=== PATIENT | female | born 1980 | race Caucasian/White ===

== ENCOUNTER 2018-04-19 06:34 | Inpatient (IN) | payer BC ==
[2018-04-19] MEDS ORDERED: OXYTOCIN 10 UNIT/ML 1 ML VIAL IM PRN (06:48)
[2018-04-19] MEDS ORDERED: LIDOCAINE 0.5% (PF) 5 MG/ML (50 ML SDV) SQ PRN (06:48)
[2018-04-19] MEDS ORDERED: METHYLERGONOVINE 0.2 MG/ML 1 ML AMP IM PRN (06:48)
[2018-04-19] MEDS ORDERED: TERBUTALINE 1 MG/ML VIAL SQ PRN (06:48)
[2018-04-19] MEDS ORDERED: CARBOPROST TROMETHAMINE 250 MCG/ML 1 ML AMP IM PRN (06:48)
[2018-04-19 06:53] VITALS: BMI 31.0
[2018-04-19] MEDS ORDERED: OXYTOCIN 30 UNITS/500 ML NS 30 UNIT in SALINE 1 500ML.BAG IV SCH (07:00)
[2018-04-19] MEDS: LACTATED RINGERS 1,000 ML IV SCH ×2 (07:00→13:32)
[2018-04-19 07:11] LABS: Basophils % (A) 0 %; Eosinophils # (A) 0.2 k/uL (0-0.7); Eosinophils % (A) 2 %; HCT 29.9 % (34.0-46.0); HGB 9.9 gm/dL (11.4-16.0); Lymphocytes # (A) 3.8 k/uL (1.0-4.8); Lymphocytes % (A) 40 %; MCH 28.6 pg (25.0-35.0); MCHC 33.1 g/dL (31.0-37.0); MCV 86.5 fL (80.0-100.0); Monocytes # (A) 0.5 k/uL (0-1.0); Monocytes % (A) 5 %; Neutrophils # (A) 4.6 k/uL (1.3-7.7); Neutrophils % (A) 49 %; Platelet Count 228 k/uL (150-450); RBC 3.46 m/uL (3.80-5.40); WBC 9.4 k/uL (3.8-10.6)
[2018-04-19] MEDS ORDERED: BUTORPHANOL 1 MG/ML 1 ML VIAL IV PRN (08:29)
--- NOTE | 2018-04-19 08:36 | P.HPOB ---
History of Present Illness H&P Date: 04/19/18 Chief Complaint: 38-4/7 weeks, mild preeclampsia, TOLAC The patient is a 37-year-old 2 para 1001 admitted at 38-4/7 weeks as established by seven-week ultrasound. She is admitted with a diagnosis of mild preeclampsia having shown blood pressures in the ranges of 150s over 90s to 100 in the office this week as well as 2+ protein spilling in her urine and increasing edema. She denies any other symptoms to include headaches or scotomata. She carries a history of previous section for breech presentation and has requested vaginal trial of labor for this . Given the findings of preeclampsia, the decision was made to proceed with delivery. Her cervix is relatively unfavorable and she is at this time declining repeat section in favor of attempted induction of labor. She does fall into the category of advanced maternal age and declined any testing. Additionally she is known to be Rh- and received RhoGAM at 28 weeks. Group B strep status is negative. Obstetrical history: 2 para 1001 with 1 term delivery secondary to breech presentation. Current statistics are listed in history of present illness. EDC of 04/30/2018 was established by a 7 week ultrasound. Laboratory workup demonstrates a blood type of A- with a negative antibody screen. Rubella status is immune. The remainder of the laboratory workup was within normal limits. One hour Glucola was normal and group B strep status is negative. Gynecologic history: Unremarkable with no history of any infections to include STDs. Review of Systems Review of systems is confined to history of present illness. Past Medical History Past Medical History: No Reported History History of Any Multi-Drug Resistant Organisms: None Reported Past Surgical History: Section Additional Past Surgical History / Comment(s): 2011 Past Anesthesia/Blood Transfusion Reactions: No Reported Reaction Past Psychological History: Anxiety, Depression Smoking Status: Never smoker Past Alcohol Use History: None Reported Past Drug Use History: None Reported - Past Family History Mother Family Medical History: Hypertension, Thyroid Disorder Medications and Allergies Home Medications Medication Instructions Recorded Confirmed Type Omeprazole 40 mg PO DAILY 04/19/18 04/19/18 History Sertraline [Zoloft] 50 mg PO DAILY 04/19/18 04/19/18 History Allergies Allergy/AdvReac Type Severity Reaction Status Date / Time Sulfa (Sulfonamide Allergy Intermediate Rash/Hives Verified 02/28/19 06:47 Antibiotics) Exam Vital Signs Temp Pulse Resp BP Pulse Ox 04/19/18 06:49 97.5 F L 73 16 153/98 98 Intake and Output 04/18/18 04/19/18 04/19/18 22:59 06:59 14:59 Other: Weight 72.121 kg In general, this is a well-developed, well-nourished white female in no acute distress. Her heart has a regular rhythm and rate without murmur. Her lungs are clear to auscultation bilaterally in all elizondo. Her abdomen is gravid, nondistended, has normal active bowel sounds, soft, nontender, and without any palpable masses aside from uterine fundus. Her extremities are without any cyanosis or clubbing though there is 1+ bilateral lower extremity edema below the knees. Digital cervical examination confirms her cervix this morning to be fingertip, approximately 70% effaced, with the vertex in presentation at -2 station. I am unable to perform artificial rupture of membranes given the patient's cervical status. Results Result Diagrams: 04/19/18 07:00 Abnormal Lab Results - Last 24 Hours (Table) 04/19/18 Range/Units 07:00 RBC 3.46 L (3.80-5.40) m/uL Hgb 9.9 L (11.4-16.0) gm/dL Hct 29.9 L (34.0-46.0) % Assessment and Plan (1) Preeclampsia Current Visit: Yes Status: Acute Code(s): O14.90 - UNSPECIFIED PRE-ECLAMPSIA , UNSPECIFIED TRIMESTER SNOMED Code(s): 966434879 (2) Previous section Current Visit: Yes Status: Acute Code(s): Z98.891 - HISTORY OF UTERINE SCAR FROM PREVIOUS SURGERY SNOMED Code(s): 704674972 (3) Term Current Visit: Yes Status: Acute Code(s): Z34.80 - ENCOUNTER FOR SUPRVSN OF NORMAL , UNSP TRIMESTER SNOMED Code(s): 55637789 Plan: The patient has been admitted for Pitocin induction. I have stressed to her and discussed on multiple occasions the risks and complications of vaginal trial of labor following section. She has understood all this and wishes to proceed. We will continue with Pitocin augmentation and attempt to perform artificial rupture of membranes at the earliest possible time. Should there be no significant change in her cervix, strong consideration will be given to simply repeating her section given the relative unfavorability of her cervix. Close maternal and surveillance Roberto practiced along with otherwise expectant management. She is a good candidate for either IV or epidural analgesia, whichever she may choose.
[2018-04-19 11:01] LABS: ALT 23 U/L (9-52); AST 22 U/L (14-36); Blood Urea Nitrogen 8 mg/dL (7-17); Uric Acid 5.9 mg/dL (3.7-7.4)
[2018-04-19 11:27] LABS: INR 0.8 (<1.2); Partial Thromboplastin Time 22.1 sec (22.0-30.0); Prothrombin Time 9.3 sec (9.0-12.0)
[2018-04-19] MEDS ORDERED: fentaNYL (PF) 50 MCG/ML 5 ML AMP ONE (13:58)
[2018-04-19] MEDS ORDERED: SODIUM CHLORIDE 0.9% 100 ML BAG ONE (13:58)
[2018-04-19] MEDS ORDERED: ROPIVACAINE 5MG/ML 20ML VIAL ONE (13:58)
[2018-04-20] MEDS ORDERED: ceFAZolin IN SWFI 2 GM/20 ML SYRINGE IVP ONE (00:17)
[2018-04-20] MEDS ORDERED: CITRIC ACID-SODIUM CITRATE 15 ML CUP PO ONE (00:17)
[2018-04-20] MEDS ORDERED: LACTATED RINGERS 1,000 ML IV ONE (00:17)
[2018-04-20] MEDS ORDERED: NALBUPHINE 10 MG/ML (1 ML AMP) ONE (00:33)
[2018-04-20] MEDS ORDERED: OXYTOCIN 10 UNIT/ML 1 ML VIAL ONE (00:33)
[2018-04-20] MEDS ORDERED: MORPHINE SULFATE (PF) 0.3 MG/0.3 ML SYR ONE (00:33)
[2018-04-20] MEDS ORDERED: KETOROLAC 30 MG/ML 1 ML VIAL ONE (00:33)
[2018-04-20] MEDS ORDERED: DEXAMETHASONE SOD PHOS (MDV) 100 MG/10 ML VIAL ONE (00:33)
[2018-04-20] MEDS ORDERED: ONDANSETRON 4 MG/2 ML VIAL IVP PRN (01:21)
[2018-04-20] MEDS ORDERED: SIMETHICONE 80 MG CHEWABLE PO PRN (01:21)
[2018-04-20] MEDS ORDERED: NALOXONE 0.4 MG/ML 1 ML VIAL IV PRN (01:21)
[2018-04-20] MEDS ORDERED: diphenhydrAMINE 50 MG/ML 1 ML VIAL IVP PRN ×2 (01:21)
[2018-04-20] MEDS ORDERED: ACETAMINOPHEN TAB 325 MG TAB PO PRN (01:21)
[2018-04-20] MEDS ORDERED: IBUPROFEN 600 MG TAB PO PRN (01:21)
[2018-04-20] MEDS ORDERED: HYDROcodone/APAP 7.5-325MG 1 EACH TAB PO PRN (01:21)
[2018-04-20] MEDS ORDERED: HYDROcodone/APAP 5-325MG 1 EACH TAB PO PRN (01:21)
[2018-04-20] MEDS ORDERED: LANOLIN CREAM 5 GM TUBE TOPICAL PRN (01:21)
[2018-04-20] MEDS ORDERED: ZOLPIDEM 5 MG TAB PO PRN (01:21)
[2018-04-20] MEDS ORDERED: METOCLOPRAMIDE 5 MG/ML 2 ML VIAL IVP PRN (01:21)
[2018-04-20] MEDS ORDERED: diphenhydrAMINE 50 MG CAP PO PRN (01:21)
[2018-04-20] MEDS ORDERED: diphenhydrAMINE 25 MG CAP PO PRN (01:21)
[2018-04-20] MEDS ORDERED: OXYTOCIN 20 UNITS/1000 ML NS 1,000 ML IV SCH (01:30)
--- NOTE | 2018-04-20 01:32 | P.OP ---
Date of Procedure: 04/20/18 Preoperative Diagnosis: #1. 38-4/7 weeks, mild preeclampsia #2. Previous section, requesting trial of labor #3. Rh- #4. Arrest of descent Postoperative Diagnosis: Same Procedure(s) Performed: #1. Repeat low transverse section Anesthesia: epidural Surgeon: Martín Mays Industrial Custodian #1: Bia Aguirre Estimated Blood Loss (ml): 400 IV fluids (ml): 600 Urine output (ml): 100 Pathology: none sent Condition: stable Disposition: floor Operative Findings: Preoperatively, the patient had ultimately progressed to complete and approximately 0 to -1 station. She began pushing and over the course of approximately 30-45 minutes, brought the head to just at 0 station or slightly below at which time she was noted to have a very prominent forward facing coccyx as well as a relatively narrow pelvic arch which entrapped the baby's head anterior to posterior. She was unable to push past this despite excellent maternal efforts. As result, she was counseled regarding repeat section and taken to the operating room where she was delivered of a viable 7 lbs. 5 oz. baby boy with Apgars of 8 at 1 minute and 9 at 5 minutes delivered in the left occiput anterior position. The placenta was delivered manually, intact, and grossly normal with a grossly normal three-vessel cord. The uterus, tubes, and ovaries were entirely normal to inspection. There was minimal scarring throughout the anterior abdominal wall and uterus though the lower uterine segment was noted to be very thin. Description of Procedure: The patient was prepped and draped in usual fashion after epidural anesthesia was bolused by the anesthesiologist. A Pfannenstiel incision was made through pre-existing scar and extended into the abdominal cavity without difficulty. The bladder peritoneum was elevated, incised, and reflected distally. A 2 cm incision was made in the lower uterine segment in the transverse plane to enter the uterus at which time clear fluid was again noted. The incision was extended in both directions using the bandage scissors. The head was encountered deep within the pelvis in the left occiput anterior position and was elevated up and through the incision where the nose and mouth were thoroughly suctioned. The remainder of the was delivered onto the field where the cord was doubly clamped, cut, and the infant passed for resuscitative measures with weight and Apgars as noted above. cord blood was collected for the necessity of RhoGAM prior to discharge. A segment of cord was doubly clamped, cut, and set aside should cord gases become necessary. The placenta was delivered manually and intact as noted above. The uterus was exteriorized and the interior cavity of the uterus swept of any remaining placental or membranous fragments. The margins of the incision were grasped with Ceron clamps and the incision closed in 2 layers. The first layer was a running locking stitch of 0 chromic catgut proceeding from margin to margin followed by a running imbricating layer of 0 chromic catgut from margin to margin. There was a small hematoma developing at the right corner of the incision was some ongoing bleeding which was made hemostatic with a ndvigg-yr-tzcir stitch of 0 chromic catgut. After ensuring hemostasis, the posterior cul-de-sac was suctioned with a guard and the uterine and ovarian findings were normal as noted above. The uterus was replaced within the abdominal cavity and the gutters were swept of any remaining blood, fluid, or clot. The incision was reexamined and found to be hemostatic. The parietal peritoneum was loosely reapproximated in a loose atpduq-vx-htybd stitch of 0 chromic catgut was utilized to reapproximate the rectus muscles in the midline. Examination of the layer of muscles demonstrates some bleeding at the base of the right rectus muscle which was made hemostatic with cautery and a zibncf-do-kjgdj stitch of 30 plain catgut. Once hemostasis was assured, the fascia was closed with 2 running stitches of 0 Vicryl proceeding from lateral margins to the midpoint. The subcutaneous tissues were irrigated and made hemostatic with the Bovie. As there was minimal subcutaneous tissue to reapproximate, it was not closed. The skin was reapproximated with a running subcuticular stitch of 4-0 Vicryl followed by half-inch Steri-Strips placed with Mastisol. Estimated blood loss for the entire case was approximate 400 mL. There were no complications. All sponge, instrument, and needle counts were correct. The patient tolerated the procedure well and proceeded to the recovery room in stable condition. Both mother and are resting comfortably in recovery.
[2018-04-20] MEDS: LACTATED RINGERS 1,000 ML IV SCH ×3 (02:45→13:13)
[2018-04-20] MEDS: SENNOSIDES-DOCUSATE SODIUM 1 EACH TAB PO SCH ×2 (08:00→19:55)
--- NOTE | 2018-04-20 09:15 | P.PNOBGPC ---
Subjective - Subjective Patient reports: Reports appetite normal (Tolerating liquids, plan solids for lunch.), Reports voiding normally, Reports pain well controlled, Reports ambulating normally [place]: doing well, nursing well Objective - Vital Signs Latest vital signs: Vital Signs Temp Pulse Resp BP Pulse Ox 04/20/18 04:00 97.5 F L 90 16 137/70 97 04/20/18 03:22 97.5 F L 79 16 139/68 97 04/20/18 02:52 97.0 F L 94 14 139/73 04/20/18 02:22 84 16 140/73 97 04/20/18 02:07 96 16 152/72 97 04/20/18 01:52 97.6 F 87 14 150/74 97 04/20/18 01:37 108 H 16 137/60 98 04/20/18 01:22 99.2 F 93 14 139/80 96 Intake and Output 04/19/18 04/20/18 04/20/18 22:59 06:59 14:59 Intake Total 600 Output Total 300 500 Balance -300 100 Intake: IV 600 Output: Urine 300 100 Estimated Blood Loss 400 Other: Voiding Method Indwelling Catheter - Exam Extremities: Present: normal Abdomen: Present: normal appearance, soft. Absent: distention, tenderness Incision: Present: normal, dry, intact Uterus: Present: normal, firm (The uterus is tonic and minimally tender at the umbilicus.) Assessment and Plan (1) Preeclampsia Current Visit: Yes Status: Acute Code(s): O14.90 - UNSPECIFIED PRE-ECLAMPSIA , UNSPECIFIED TRIMESTER SNOMED Code(s): 188606151 (2) Previous section Current Visit: Yes Status: Acute Code(s): Z98.891 - HISTORY OF UTERINE SCAR FROM PREVIOUS SURGERY SNOMED Code(s): 052506950 (3) Term Current Visit: Yes Status: Acute Code(s): Z34.80 - ENCOUNTER FOR SUPRVSN OF NORMAL , UNSP TRIMESTER SNOMED Code(s): 11221394 (4) S/P section Current Visit: Yes Status: Acute Code(s): Z98.891 - HISTORY OF UTERINE SCAR FROM PREVIOUS SURGERY SNOMED Code(s): 966998895 Plan: Continue routine postoperative care. I have encouraged the patient name bleeding the hallways routinely. Her diet will be advanced to regular at lunch time. Possible discharge home tomorrow pending no complications. We will continue to follow her blood pressure closely. At this time, no antihypertensive intervention is necessary.
[2018-04-20] MEDS: KETOROLAC 30 MG/ML 1 ML VIAL IVP PRN ×2 (13:14→19:56)
[2018-04-21 01:46] VITALS: RESP 18
[2018-04-21 06:50] LABS: Basophils % (A) 0 %; Eosinophils # (A) 0.1 k/uL (0-0.7); Eosinophils % (A) 1 %; Hypochromasia Slight; Lymphocytes # (A) 3.4 k/uL (1.0-4.8); Lymphocytes % (A) 28 %; MCHC 33.9 g/dL (31.0-37.0); MCV 88.3 fL (80.0-100.0); Mean Platelet Volume 8.3; Monocytes # (A) 0.5 k/uL (0-1.0); Monocytes % (A) 4 %; Neutrophils # (A) 7.8 k/uL (1.3-7.7); Neutrophils % (A) 64 %; Platelet Count 221 k/uL (150-450); RBC 2.49 m/uL (3.80-5.40); RDW 14.2 % (11.5-15.5); WBC 12.2 k/uL (3.8-10.6)
[2018-04-21 06:58] LABS: HGB 7.5 gm/dL (11.4-16.0)
[2018-04-21] MEDS: SENNOSIDES-DOCUSATE SODIUM 1 EACH TAB PO SCH (09:51)
--- NOTE | 2018-04-21 11:26 | P.DS ---
Providers Date of admission: 04/19/18 06:34 Expected date of discharge: 04/21/18 Attending physician: Martín Mays Primary care physician: Stated None - Discharge Diagnosis(es) (1) Preeclampsia Current Visit: Yes Status: Acute (2) Previous section Current Visit: Yes Status: Acute (3) Term Current Visit: Yes Status: Acute (4) S/P section Current Visit: Yes Status: Acute Hospital Course: The patient is a 37-year-old 2 para 1001 admitted at 38-4/7 weeks by good dating parameters. She is admitted for induction of labor secondary to mild preeclampsia with moderately elevated blood pressures as well as protein in her urine and edema. She carries a history of a previous section for breech presentation and requested trial of labor. She additionally fell into the category of advanced maternal age and declined testing. She also is known to be Rh-. On labor and delivery, her blood pressures remained stable at rest. She had Pitocin augmentation started and underwent artificial rupture of membranes. She had an epidural catheter placed for analgesia. She the end to make steady progress in the afternoon of progressed ultimately to complete and -1-0 station. She pushed for approximately 30-45 minutes at which time it was identified that the head was entrapped between the coccyx posteriorly and the narrow pubic arch anteriorly which arrested descent. She was taken the operating room where she underwent repeat low transverse section and uncomplicated fashion. Her postoperative course has been unremarkable with vital signs remaining stable and her blood pressures now in the normal range. She has been afebrile throughout. She was deemed stable for discharge on post operative day #1 and was discharged home to follow-up in the office in 2 weeks for an incision check and 6 weeks routinely. Discharge instructions included calling for any significantly increased bleeding or foul- smelling lochia, significantly increased fever or abdominal pain, perineal complaints, breast complaints, incisional complaints, or anything else that concerned her. She was additionally instructed to have nothing in the vagina for least 6 weeks time to include intercourse and to abstain from any heavy lifting over the same period of time. She is less instructed to do no driving until off of all pain medications or 2 weeks' time, whichever came first. She understood her instructions and agrees to follow up as noted above. Discharge medications included continued vitamins as she has opted to breast- feed. She additionally was provided a prescription for [place] 5/325 mg, 1-2 by mouth every 6 hours when necessary pain, #20 dispensed with no refills. She is additionally to use qscn-vqz-xqppfam analgesic pain medications as necessary. She also is instructed to take iron sulfate 1-2 times a day for at least a month in order to rebuild her hemoglobin. Maternal blood type is A- and cord blood was sent for evaluation for the necessity of RhoGAM prior to discharge. Rubella status is immune. Discharge hemoglobin and hematocrit were 7.5 and 22.0 respectively. Procedures: #1. Pitocin induction #2. Artificial rupture of membranes #3. Epidural analgesia #4. Repeat low transverse section Patient Condition at Discharge: Stable Plan - Discharge Summary New Discharge Prescriptions: No Action Sertraline [Zoloft] 50 mg PO DAILY Omeprazole 40 mg PO DAILY Discharge Medication List Omeprazole 40 mg PO DAILY 04/19/18 [History] Sertraline [Zoloft] 50 mg PO DAILY 04/19/18 [History] Follow up Appointment(s)/Referral(s): Martín Mays MD [STAFF PHYSICIAN] - 2 Weeks Discharge Disposition: HOME SELF-CARE
[2018-04-21 18:14] VITALS: BP 138/82; PULSE 98; TEMP 98.2
== END 2018-04-21 18:16 | disposition home or self-care (01) | DRG 788 ==
LOC: 4FBP 06:34
PROVIDERS: ADMIT Obstetrics & Gynecology; ATTEND Obstetrics & Gynecology
PROC: 10D00Z1 Extraction of Products of Conception, Low, Open Approach (ICD-10-PCS; principal; 2018-04-20 00:40)
PROC: 3E033VJ Introduction of Other Hormone into Peripheral Vein, Percutaneous Approach (ICD-10-PCS; principal; 2018-04-20 00:40)
PROC: 10907ZC Drainage of Amniotic Fluid, Therapeutic from Products of Conception, Via Natural or Artificial Opening (ICD-10-PCS; principal; 2018-04-20 00:40)
DX: O14.04 Mild to moderate pre-eclampsia, complicating childbirth (principal); O65.1 Obstructed labor due to generally contracted pelvis; O34.211 Maternal care for low transverse scar from previous cesarean delivery; O99.344 Other mental disorders complicating childbirth; F32.9 Major depressive disorder, single episode, unspecified; F41.9 Anxiety disorder, unspecified; O32.8XX0 Maternal care for other malpresentation of fetus, not applicable or unspecified; Z82.49 Family history of ischemic heart disease and other diseases of the circulatory system; Z37.0 Single live birth; Z3A.38 38 weeks gestation of pregnancy; Z79.899 Other long term (current) drug therapy; O62.1 Secondary uterine inertia
CPT/HCPCS: 82565; 84450; 84460; 84520; 84550; 85025; 85610; 85730; 86850; 86870; 86880; 86900; 86901

== ENCOUNTER → 2023-08-03 | Outpatient (CLI) | payer BC ==
[2023-08-03 15:55] VITALS: BP 138/84; PULSE 98; RESP 16; TEMP 98.1
--- NOTE | 2023-08-03 16:14 | P.SLEEP ---
History of Present Illness DATE: 08/03/2023 CONSULTATION/NEW PATIENT EVALUATION HISTORY OF PRESENT ILLNESS/SLEEP-WAKE EVALUATION: 42-year-old lady had been e valuated in the sleep center for possible obstructive sleep apnea hypopnea syndrome. SLEEP SCHEDULE: Usually sleep schedule from 10:11 PM to 6:50 AM on weekdays and until 10:11 AM on weekend. FALLING ASLEEP: No problems with falling asleep. DURING SLEEP: Patient snores and has multiple awakenings from sleep with episodes of gasping for air and witnessed episodes of stop breathing during the sleep. Positive history of sweating during the sleep. Patient wakes up from sleep up to 5 times with 4 episodes of nocturia. No history of hypnogogical hallucinations, sleep paralysis, or cataplexy. DURING THE DAY/WAKE STATE: In the morning patient wake up tired, has difficulties to pay attention, falling asleep during the day. Positive history of irritability, anxiety and depression episodes.. [place] sleepiness scale is significantly increased to 14. Patient takes 1 nap afternoon if she has time. PAST MEDICAL HISTORY: Acid reflux, depression, anxiety. PAST SURGICAL HISTORY: C-sections x 2. MEDICATIONS: Please see below. SOCIAL HISTORY: Please see below. FAMILY HISTORY: Hypertension, stroke, cancer, thyroid problems. REVIEW OF SYSTEMS: Snoring, multiple awakenings from sleep sleepiness during the day. No fevers. No double vision. No recent chest pain. No shortness of breath. No abdominal pain. No bleeding episodes. No blood in urine. No seizure episodes. PHYSICAL EXAMINATION: GENERAL: A pleasant patient without any distress. VITAL SIGNS: Please see below, weight 181 pounds, BMI 34.7. HEENT: PERRLA, EOMI. Evaluation of oropharynx showed tongue protrudes midline, low position of soft palate Mallampati 23. NECK: Supple. No JVD. Thyroid is not palpable. 14-1/4 inches in circumference. LUNGS: Clear to percussion and to auscultation. Good air exchange. No wheezing or rhonchi. HEART: S1, S2 regular. No murmurs, gallops or rubs. ABDOMEN: Soft and nontender. Bowel sounds are present. No organomegaly appreciated. EXTREMITIES: No clubbing or cyanosis. INTERCHANGE AGENT: Awake, alert, and oriented x3. Cranial nerves 2 to 7 intact. There is no fasciculation or atrophy noted. No focal deficits observed. ASSESSMENT: 1. Snoring, multiple awakenings from sleep, witnessed episodes of stop breathing during the sleep, low position of soft palate, sleepiness with [place] Sleepiness Scale increased to 14. Obstructive sleep apnea hypopnea syndrome. 2. Obesity, BMI 34.7. 3. Acid reflux. 4. Depression. 5 anxiety. 6 . Status post C-sections x 2. PLAN: 1. Polysomnography for evaluation of patient's breathing during sleep. 2. Following plan after reading sleep study. 3. Preferable position during sleep on the side. 4. No driving if patient feels any sleepiness. Patient is aware of civil and criminal liability for unsafe driving. 5. Sleep hygiene with regular sleep time for at least 7.5-8 hours. 6. Watching and losing weight. Thank you very much for referring this patient for consultation. Sincerely, Mynor Ng MD, PhD, FAASM. Diplomat of [place] [employer], Sleep Medicine Board by [place] [employer] [place] [employer] [facility] [place] Past Medical History Past Medical History: GERD/Reflux History of Any Multi-Drug Resistant Organisms: None Reported Past Surgical History: Section Additional Past Surgical History / Comment(s): 2011 Past Anesthesia/Blood Transfusion Reactions: No Reported Reaction Past Psychological History: Anxiety, Depression Smoking Status: Never smoker Past Alcohol Use History: None Reported Past Drug Use History: None Reported - Past Family History Mother Family Medical History: Hyperlipidemia, Hypertension, Rheumatoid Arthritis (RA), Thyroid Disorder Additional Family Medical History / Comment(s): sinus headaches, insomnia Father Family Medical History: Hyperlipidemia Additional Family Medical History / Comment(s): snoring Medications and Allergies Home Medications Medication Instructions Recorded Confirmed Type Omeprazole 40 mg PO DAILY 04/19/18 08/03/23 History Cariprazine HCl [Vraylar] 1.5 mg PO DAILY 08/03/23 08/03/23 History Etonogestrel/Ethinyl Estradiol See Rx Instructions .ROUTE .COMPLEX 08/03/23 08/03/23 History [Nuvaring Vaginal Ring] Venlafaxine HCl [Effexor] 75 mg PO DAILY 08/03/23 08/03/23 History Allergies Allergy/AdvReac Type Severity Reaction Status Date / Time Sulfa (Sulfonamide Allergy Intermediate Rash/Hives Verified 02/28/19 06:47 Antibiotics) Physical Exam Vitals: Vital Signs Temp Pulse Resp BP Pulse Ox 08/03/23 15:54 98.1 F 98 16 138/84 98 Intake and Output 08/03/23 08/03/23 08/03/23 06:59 14:59 22:59 Other: Weight 82.1 kg Sleep Note - Sleep Data ESS Total: 14 - Sleep Note Sleep Note: Temperature: 98.1 F Pulse Rate: 98 Respiratory Rate: 16 Blood Pressure: 138/84 SpO2: 98 Height: 5 ft 0.5 in Weight: 82.1 kg BMI: Neck Circumference: 14.2
== END ==
LOC: 3 N SLEEP 15:09
PROVIDERS: ATTEND Internal Medicine
DX: G47.33 Obstructive sleep apnea (adult) (pediatric) (principal); K21.9 Gastro-esophageal reflux disease without esophagitis; F41.8 Other specified anxiety disorders; E66.9 Obesity, unspecified; Z68.34 Body mass index [BMI] 34.0-34.9, adult; Z79.899 Other long term (current) drug therapy
CPT/HCPCS: 99202

== ENCOUNTER → 2023-08-29 | Outpatient (CLI) | payer BC ==
--- NOTE | 2023-08-30 13:33 | P.PCN ---
Description of Procedure: CLINICAL: A home sleep apnea test has been done for confirmation of possible obstructive sleep apnea-hypopnea syndrome. DESCRIPTION OF PROCEDURE: RESULTS: Recording time was 7 hours 56 minutes. Evaluation time was 7 hours 44 minutes. Evaluation time is sufficient for making conclusion about results of the test. Raw data of sleep recording has been reviewed and is adequate. Respiratory channel showed 10 apneas and 89 hypopneas. Apnea-hypopnea index was 12.8 per hour. Pulse rate in the range between minimum 55, maximum 118, average 93 by computer calculation. Lowest desaturation was 87%. IMPRESSION: 1. Obstructive Sleep Apnea Hypopnea Syndrome. Please see other impressions from consultation. PLAN: 1. The patient will be started on auto-PAP treatment for correction of respiratory abnormallities during sleep. 2. I will see patient for follow up visit to discuss results of the test, evaluate clinical response on treatment with PAP therapy and make any necessary adjustments related to mask fitting, pressure, and humidification. 3. Watching and losing weight. 4. Sleep hygiene with regular time in bed for at least 8 hours. 5. No driving if feeling any sleepiness. Thank you very much for allowing me to participate in the management of your patient. Sincerely, Mynor Ng MD, PhD, FAASM Diplomat of [place] [employer] Sleep Medicine Board of [place] [employer] Covering Machine Operator [facility] [place] cc: Gale Darnell PA-C
== END ==
LOC: 3 N SLEEP 16:48
PROVIDERS: ATTEND Internal Medicine
DX: G47.33 Obstructive sleep apnea (adult) (pediatric) (principal); Z88.2 Allergy status to sulfonamides